=== PATIENT | female | born 1955 | race Caucasian/White ===

== ENCOUNTER 2023-04-05 09:13 | Inpatient (IN) | payer MEDICARE, OTHER ==
[2023-04-05] MEDS ORDERED: Iopamidol 755 Mg/ML 100 ML Bottle IVPUSH ONE (09:32)
[2023-04-05] MEDS ORDERED: Sodium Chloride 0.9% 10 ML Syringe FLUSH PRN (09:32)
[2023-04-05] MEDS ORDERED: Sodium Chloride 0.9% 100 ML IV SCH (09:45)
[2023-04-05 09:59] LABS: BASOPHILS ABSOLUTE AUTO 0.1 K/mm3 (0.0-0.2); BASOPHILS PERCENT AUTO 0.5 % (0.0-1.0); EOSINOPHILS ABSOLUTE AUTO 0.2 K/mm3 (0.0-0.4); EOSINOPHILS PERCENT AUTO 1.6 % (0.0-6.0); HEMATOCRIT 40.4 % (37.0-47.0); HEMOGLOBIN 13.3 gm/dl (12.0-16.0); IMMATURE GRAN ABSOLUTE AUTO 0.06 K/mm3 (0.00-0.05); IMMATURE GRAN PERCENT AUTO 0.5 % (0.0-0.4); LYMPHOCYTES ABSOLUTE AUTO 3.4 K/mm3 (1.0-4.8); LYMPHOCYTES PERCENT AUTO 30.6 % (24.0-44.0); MEAN CORPUSCULAR HEMOGLOBIN 26.7 pg (28.0-32.0); MEAN CORPUSCULAR HGB CONC 32.9 g/dl (32.0-36.0); MEAN CORPUSCULAR VOLUME 81.1 fl (83.0-99.0); MEAN PLATELET VOLUME 11.7 fl (9.4-12.3); MONOCYTES PERCENT AUTO 9.3 % (0.0-8.0); NEUTROPHILS ABSOLUTE AUTO 6.4 K/mm3 (1.8-7.7); NEUTROPHILS PERCENT AUTO 57.5 % (41.0-71.0); PLATELET COUNT,PLT 224 K/mm3 (150-400); RED BLOOD CELL COUNT 4.98 M/mm3 (4.10-5.30); WHITE BLOOD CELL COUNT,WBC 11.14 K/mm3 (3.9-11.3)
[2023-04-05 10:05] LABS: INR 1.09; PROTHROMBIN TIME 11.6 SECONDS (9.7-12.0)
[2023-04-05 10:13] LABS: A/G RATIO 0.8 (1-2); ALANINE AMINOTRANSFERASE,ALT 99 U/L (14-59); ALBUMIN 2.9 g/dl (3.4-5.0); ALKALINE PHOSPHATASE 71 U/L (46-116); ANION GAP 17.3 (5-15); ASPARTATE AMNIOTRANSFERASE,AST 62 U/L (15-37); BILIRUBIN TOTAL 1.2 mg/dL (0.2-1.0); BLOOD UREA NITROGEN,BUN 35 mg/dL (7-18); BUN/CREATININE RATIO 43.8 (14-18); CARBON DIOXIDE,CO2 21 mEq/L (21-32); CHLORIDE,CL 103 mEq/L (98-107); CREATININE 0.8 mg/dL (0.55-1.02); ESTIMATED GFR 80 mL/min (>60); GLUCOSE RANDOM 156 mg/dL (70-99); POTASSIUM,K 3.3 mEq/L (3.5-5.1); PROTEIN TOTAL,TP 6.4 g/dl (6.4-8.2); SODIUM,NA 138 mEq/L (136-145); TROPONIN I HIGH SENSITIVITY 13 pg/mL (<=51)
[2023-04-05 10:42] LABS: APPEARANCE,URINE CLOUDY (Clear); BILIRUBIN,URINE 1+ (Negative); COLOR,URINE YELLOW (Yellow); GLUCOSE,URINE 3+ (Negative); KETONES,URINE 2+ (Negative); LEUKOCYTE ESTERASE,URINE 2+ (Negative); NITRITE,URINE NEGATIVE (Negative); OCCULT BLOOD,URINE 1+ (Negative); PH,URINE 5.5 (5.0-8.0); PROTEIN,URINE 2+ (Negative); UROBILINOGEN,URINE 0.2 (0.2-1.0)
[2023-04-05] MEDS ORDERED: cefTRIAXone 1 GM in Sodium Chloride 0.9% 100 ML IV SCH ×2 (11:45→12:00)
[2023-04-05] MEDS ORDERED: D5 1/2 NS w/ 20 mEq/L KCl 1,000 ML IV SCH (11:45)
[2023-04-05] MEDS ORDERED: Insulin Lispro 100 Unit/ML 3 ML KwikPen SUBCUT SCH (11:45)
[2023-04-05 12:19] LABS: RBC,URINE 30-40 /hpf (0-5); WBC,URINE 50-75 /hpf (0-5)
[2023-04-05 12:20] LABS: BACTERIA,URINE MANY /hpf (FEW); EPITHELIAL CELLS,URINE 0-5 /hpf (0-5); MUCUS,URINE FEW /hpf (FEW); YEAST,URINE MANY (NOT SEEN)
[2023-04-05] MEDS ORDERED: Acetaminophen 650 MG Supp RECTAL PRN (12:28)
[2023-04-05] MEDS ORDERED: Aspirin 300 MG Supp RECTAL ONE ×4 (12:29→16:00)
[2023-04-05] MEDS ORDERED: Aspirin 300 MG Supp RECTAL SCH (12:30)
[2023-04-05] MEDS ORDERED: Ondansetron 4 MG/2 ML SDV IV PRN (12:32)
[2023-04-05] MEDS ORDERED: Morphine 2 MG/ML SYRINGE IVPUSH PRN (12:32)
[2023-04-05 14:01] LABS: HEMOGLOBIN A1C 7.7 %
[2023-04-05] MEDS: Levofloxacin/Dextrose 5%-Water 750 MG in Premix Bag 1 BAG IV SCH (14:05)
[2023-04-05] MEDS: Sodium Chloride 0.9% 1,000 ML IV SCH (14:46)
[2023-04-05] MEDS: Potassium Chloride 10 MEQ in Premix Bag 1 BAG IV SCH ×4 (15:47→20:25)
[2023-04-05] MEDS: Insulin Lispro 100 Unit/ML 3 ML KwikPen SUBCUT SCH (19:17)
[2023-04-06] MEDS: Insulin Lispro 100 Unit/ML 3 ML KwikPen SUBCUT SCH ×4 (00:05→19:20)
[2023-04-06] MEDS: Sodium Chloride 0.9% 1,000 ML IV SCH ×2 (04:14→16:51)
[2023-04-06 05:33] LABS: BASOPHILS ABSOLUTE AUTO 0.1 K/mm3 (0.0-0.2); BASOPHILS PERCENT AUTO 0.7 % (0.0-1.0); EOSINOPHILS ABSOLUTE AUTO 0.2 K/mm3 (0.0-0.4); EOSINOPHILS PERCENT AUTO 2.1 % (0.0-6.0); HEMOGLOBIN 12.6 gm/dl (12.0-16.0); IMMATURE GRAN ABSOLUTE AUTO 0.04 K/mm3 (0.00-0.05); IMMATURE GRAN PERCENT AUTO 0.4 % (0.0-0.4); LYMPHOCYTES ABSOLUTE AUTO 2.1 K/mm3 (1.0-4.8); LYMPHOCYTES PERCENT AUTO 20.1 % (24.0-44.0); MEAN CORPUSCULAR HEMOGLOBIN 26.5 pg (28.0-32.0); MEAN CORPUSCULAR HGB CONC 32.3 g/dl (32.0-36.0); MEAN CORPUSCULAR VOLUME 82.1 fl (83.0-99.0); MEAN PLATELET VOLUME 11.7 fl (9.4-12.3); MONOCYTES ABSOLUTE AUTO 0.9 K/mm3 (0.0-0.8); MONOCYTES PERCENT AUTO 8.7 % (0.0-8.0); PLATELET COUNT,PLT 200 K/mm3 (150-400); RED BLOOD CELL COUNT 4.75 M/mm3 (4.10-5.30); WHITE BLOOD CELL COUNT,WBC 10.29 K/mm3 (3.9-11.3)
[2023-04-06 05:34] LABS: A/G RATIO 0.8 (1-2); ALBUMIN 2.7 g/dl (3.4-5.0); ANION GAP 14.6 (5-15); CALCIUM 8.7 mg/dL (8.5-10.1); CREATININE 0.6 mg/dL (0.55-1.02); EST CRCL DRUG DOSING (CG) 89.27 mL/min; MAGNESIUM 1.5 mg/dL (1.8-2.4); POTASSIUM,K 3.6 mEq/L (3.5-5.1); PROTEIN TOTAL,TP 6.1 g/dl (6.4-8.2)
[2023-04-06] MEDS ORDERED: Magnesium Sulfate/Water 2 GM in Premix Bag 1 BAG IV ONE (08:00)
[2023-04-06] MEDS: Aspirin 300 MG Supp RECTAL SCH (08:33)
[2023-04-06] MEDS ORDERED: Aspirin 300 MG Supp RECTAL SCH (09:00)
[2023-04-06 10:41] LABS: CHOLESTEROL HDL 33 mg/dL (40-59); CHOLESTEROL LDL DIRECT 53 mg/dL (<100); CHOLESTEROL TOTAL 99 mg/dL (<200); TRIGLYCERIDES 81 mg/dL (<150)
[2023-04-06] MEDS: Levofloxacin/Dextrose 5%-Water 750 MG in Premix Bag 1 BAG IV SCH (13:43)
[2023-04-07] MEDS: Insulin Lispro 100 Unit/ML 3 ML KwikPen SUBCUT SCH ×3 (00:50→14:33)
[2023-04-07 05:32] LABS: A/G RATIO 0.7 (1-2); ALBUMIN 2.5 g/dl (3.4-5.0); ANION GAP 14.2 (5-15); CALCIUM 8.3 mg/dL (8.5-10.1); CREATININE 0.5 mg/dL (0.55-1.02); EST CRCL DRUG DOSING (CG) 107.12 mL/min; MAGNESIUM 1.6 mg/dL (1.8-2.4); POTASSIUM,K 3.2 mEq/L (3.5-5.1); PROTEIN TOTAL,TP 6.3 g/dl (6.4-8.2)
[2023-04-07 05:55] LABS: BASOPHILS PERCENT AUTO 0.4 % (0.0-1.0); EOSINOPHILS ABSOLUTE AUTO 0.4 K/mm3 (0.0-0.4); EOSINOPHILS PERCENT AUTO 3.9 % (0.0-6.0); HEMATOCRIT 38.1 % (37.0-47.0); HEMOGLOBIN 12.2 gm/dl (12.0-16.0); IMMATURE GRAN ABSOLUTE AUTO 0.04 K/mm3 (0.00-0.05); IMMATURE GRAN PERCENT AUTO 0.4 % (0.0-0.4); LYMPHOCYTES PERCENT AUTO 20.2 % (24.0-44.0); MEAN CORPUSCULAR HEMOGLOBIN 26.3 pg (28.0-32.0); MEAN CORPUSCULAR VOLUME 82.1 fl (83.0-99.0); MEAN PLATELET VOLUME 11.4 fl (9.4-12.3); MONOCYTES ABSOLUTE AUTO 0.8 K/mm3 (0.0-0.8); MONOCYTES PERCENT AUTO 8.4 % (0.0-8.0); NEUTROPHILS ABSOLUTE AUTO 6.5 K/mm3 (1.8-7.7); NEUTROPHILS PERCENT AUTO 66.7 % (41.0-71.0); PLATELET COUNT,PLT 191 K/mm3 (150-400); RED BLOOD CELL COUNT 4.64 M/mm3 (4.10-5.30); WHITE BLOOD CELL COUNT,WBC 9.77 K/mm3 (3.9-11.3)
[2023-04-07] MEDS: Aspirin 300 MG Supp RECTAL SCH (08:54)
[2023-04-07] MEDS ORDERED: LORazepam 2 MG/ML SDV IVPUSH PRN (12:43)
[2023-04-07] MEDS ORDERED: Morphine 2 MG/ML SYRINGE IVPUSH PRN (12:43)
[2023-04-07] MEDS: Morphine 4 MG/ML Syringe IVPUSH PRN ×2 (14:08→22:31)
[2023-04-07] MEDS: Levofloxacin/Dextrose 5%-Water 750 MG in Premix Bag 1 BAG IV SCH (14:08)
[2023-04-08] MEDS: Morphine 4 MG/ML Syringe IVPUSH PRN ×5 (03:33→22:52)
[2023-04-08] MEDS: LORazepam 2 MG/ML SDV IVPUSH PRN (23:44)
[2023-04-09] MEDS: Morphine 4 MG/ML Syringe IVPUSH PRN ×4 (04:05→16:28)
[2023-04-09] MEDS: Scopolamine 1.5 MG Transdermal Patch TRDERM PRN (12:35)
[2023-04-10] MEDS: Morphine 4 MG/ML Syringe IVPUSH PRN ×2 (09:18→23:18)
[2023-04-12] MEDS: Morphine 4 MG/ML Syringe IVPUSH PRN ×2 (08:01→14:33)
[2023-04-13] MEDS: Morphine 4 MG/ML Syringe IVPUSH PRN (06:09)
[2023-04-14] MEDS: Morphine 4 MG/ML Syringe IVPUSH PRN ×4 (09:48→21:01)
[2023-04-14] MEDS: LORazepam 2 MG/ML SDV IVPUSH PRN (21:03)
[2023-04-15] MEDS: Morphine 4 MG/ML Syringe IVPUSH PRN ×4 (05:36→21:25)
[2023-04-15] MEDS: Scopolamine 1.5 MG Transdermal Patch TRDERM PRN (09:21)
[2023-04-15] MEDS: LORazepam 2 MG/ML SDV IVPUSH PRN ×2 (10:14→21:25)
[2023-04-16] MEDS: Morphine 4 MG/ML Syringe IVPUSH PRN ×3 (01:30→18:02)
[2023-04-16] MEDS: LORazepam 2 MG/ML SDV IVPUSH PRN ×2 (01:45→17:20)
[2023-04-17] MEDS: Morphine 4 MG/ML Syringe IVPUSH PRN ×5 (02:39→17:49)
[2023-04-17] MEDS: LORazepam 2 MG/ML SDV IVPUSH PRN ×3 (02:40→15:59)
[2023-04-18] MEDS: LORazepam 2 MG/ML SDV IVPUSH PRN ×4 (03:59→22:14)
[2023-04-18] MEDS: Morphine 4 MG/ML Syringe IVPUSH PRN ×7 (03:59→22:08)
[2023-04-18] MEDS: Scopolamine 1.5 MG Transdermal Patch TRDERM PRN (12:28)
[2023-04-19] MEDS: Morphine 4 MG/ML Syringe IVPUSH PRN ×6 (00:56→17:21)
[2023-04-19] MEDS: LORazepam 2 MG/ML SDV IVPUSH PRN ×3 (02:40→19:45)
== END 2023-04-19 21:00 | disposition expired | DRG 65 ==
LOC: JD.ED 09:16 → JD.MS 11:31
PROVIDERS: ADMIT Internal Medicine; ATTEND Internal Medicine
PROC: 0T9B70Z Drainage of Bladder with Drainage Device, Via Natural or Artificial Opening (ICD-10-PCS; principal; 2023-04-05)
DX: I63.219 Cerebral infarction due to unspecified occlusion or stenosis of unspecified vertebral artery (principal); I69.354 Hemiplegia and hemiparesis following cerebral infarction affecting left non-dominant side; N30.01 Acute cystitis with hematuria; I63.22 Cerebral infarction due to unspecified occlusion or stenosis of basilar artery; Z66 Do not resuscitate; E78.5 Hyperlipidemia, unspecified; R29.732 NIHSS score 32; E87.6 Hypokalemia; E86.0 Dehydration; E11.69 Type 2 diabetes mellitus with other specified complication; E83.42 Hypomagnesemia; Z51.5 Encounter for palliative care; Z97.8 Presence of other specified devices; Z88.8 Allergy status to other drugs, medicaments and biological substances; Z91.018 Allergy to other foods; E11.9 Type 2 diabetes mellitus without complications; Z79.4 Long term (current) use of insulin; Z86.73 Personal history of transient ischemic attack (TIA), and cerebral infarction without residual deficits; Z79.84 Long term (current) use of oral hypoglycemic drugs; Z79.02 Long term (current) use of antithrombotics/antiplatelets; Z79.82 Long term (current) use of aspirin; Z79.899 Other long term (current) drug therapy
CPT/HCPCS: 36415; 70450; 70496; 70498; 71045; 80053; 81001; 81003; 83036; 84484; 85025; 85610; 87086; 93005; 99285; J3490 ×2; Q9967; 80061; 82947; 83735; 93010; A9270-GY; J1956; J2060; J2270; J3475; J3480; J7030